=== PATIENT | male | born 1980 | race Caucasian/White ===

== ENCOUNTER 2016-04-02 07:27 | Emergency (ER) | payer OTHER ==
[~2016-04-02] VITALS: Ht 182.9 cm; Wt 74.8 kg
[~2016-04-02 07:27] MED LIST: FIORICET 325 MG1 TAB PO; ZOFRAN4 M1 SL
[2016-04-02 07:34] VITALS: BP 134/80
[2016-04-02] MEDS ORDERED: SUBOXONE 8 MG-1 EACH SL (07:38)
--- NOTE | 2016-04-02 07:50 | ED THROAT/DENTAL COMPLAINT ---
See Addendum History of Present Illness General Chief Complaint: Sore Throat, Dental Pain Stated Complaint: SORE THROAT Source: patient Exam Limitations: no limitations Vital Signs & Intake/Output Vital Signs & Intake/Output Vital Signs Date Time Temp Pulse Resp B/P Pulse O2 O2 Flow FiO2 Ox Delivery Rate 04/02 0734 98.1 74 18 134/80 98 Room Air Allergies Coded Allergies: NO KNOWN ALLERGIES (04/29/11) Reconcile Medications Buprenorphine HCl/Naloxone HCl (Suboxone 8 MG-2 MG Sl Film) 8 MG-2 MG FILM 1 STR SL DAILY SUBSTANCE ABUSE HX (Reported) Triage Note: COMPLAINS OF SORE THROAT SINCE LAST PM, PTS SON WAS DIAGNOSED WITH STREP THROAT Triage Nurses Notes Reviewed? yes Duration: day(s):, constant, continues in ED Severity: mild HPI: pt presents for eval of a sore throat that began gradually last night. his son is being treated for bacterial pharyngitis currently. no fever, chills, runny nose or cough. Past History Travel History Traveled to [place] past 21 day No Medical History Any Pertinent Medical History? see below for history Neurological: HEADACHE EENT: NONE Cardiovascular: NONE Respiratory: NONE Gastrointestinal: NONE Hepatic: NONE Renal: NONE Musculoskeletal: NONE Psychiatric: NONE Endocrine: NONE Blood Disorders: NONE Cancer(s): NONE [employer]/Reproductive: NONE Surgical History Surgical History: non-contributory Psychosocial History What is your primary language Palestinian Tobacco Use: Never used ETOH Use: denies use Illicit Drug Use: denies illicit drug use Family History Hx Contributory? No Review of Systems Review of Systems Constitutional: Reports: no symptoms. EENTM: Reports: see HPI. Respiratory: Reports: no symptoms. Cardiovascular: Reports: no symptoms. GI: Reports: no symptoms. Genitourinary: Reports: no symptoms. Musculoskeletal: Reports: no symptoms. Skin: Reports: no symptoms. Neurological/Psychological: Reports: no symptoms. Hematologic/Endocrine: Reports: no symptoms. Immunologic/Allergic: Reports: no symptoms. All Other Systems: Reviewed and Negative Physical Exam Physical Exam Mouth/Throat: see below Comments: Gen.: Well-nourished, well-developed, no acute respiratory distress. Head: Normocephalic, atraumatic. Eyes: Normal inspection bilaterally Ears: Normal inspection bilaterally Nose: Normal inspection Throat/mouth : Moist mucosa , mild erythema without exudates Neck: Supple, full range of motion, no goiter Lungs: Quiet respirations Back: Normal range of motion Extremities: Normal range of motion grossly Neurologic: Cranial nerves grossly intact, speech is clear Skin: warm and dry Psychiatric: Calm, cooperative, no apparent delusions or hallucinations Lymphatic: No tender lymphadenopathy of the neck Core Measures ACS in differential dx? No Severe Sepsis Present: No Septic Shock Present: No Progress Differential Diagnosis: judit-tonsillar abscess, strep pharyngitis, viral syndrome Plan of Care: Orders Procedure Date/time Status THROAT CULTURE W/QUICK STREP 04/02 728 Active Departure Departure Disposition: HOME OR SELF CARE Condition: Stable Clinical Impression Primary Impression: Viral pharyngitis Referrals: JENNA YOUNG MD (PCP/Family) Additional Instructions: Maintain a good fluid intake. Ibuprofen 600 mg every 6 hours as needed for pain or discomfort. Follow-up with your primary care physician in one week if not improving. Return if any concerns or sudden worsening. Thank you for choosing the [facility] for your care. It was a pleasure to serve you today. Nick Villalba M.D. [facility] Departure Forms: Customer Survey General Discharge Information
[2016-04-04] MEDS ORDERED: AMOXICILLIN500 M2 PO (19:44)
== END 2016-04-02 08:11 ==
LOC: ERH 07:27
DX: J02.8 Acute pharyngitis due to other specified organisms (principal)
CPT/HCPCS: 87147; 99282